=== PATIENT | female | born 1985 | race Caucasian/White ===

== ENCOUNTER 2019-12-22 14:20 | Outpatient (REF) | payer BC, SELFPAY ==
--- NOTE | 2019-12-22 14:36 | US_ITS ---
EXAMINATION: US OBSTETRICAL CLINICAL INFORMATION: 34-year-old at 19.1 weeks of gestation Suspected anomaly COMPARISON: [id number] TECHNIQUE: Real-time transabdominal ultrasound was performed using C1-5 megahertz transducer. FINDINGS: A single, active, fetus is seen in breech presentation. The placenta is posterior without previa, and the amniotic fluid volume is wnl. MEASUREMENTS: 1. Biparietal Diameter: 4.7 cm; 20.1 wks 2. Occipital Frontal Diameter: 5.9 cm 3. Head Circumference: 16.8 cm; 18.4 wks 4. Abdominal Circumference: 13.7 cm; 19.2 wks 5. Femur Length: 2.96 cm; 19.1 wks 6. Humerus Length: 2.83 cm; 19.1 wks 7. Tibia Length: 2.63 cm; 19.3 wks 8. Ulna Length: 2.62 cm; 19.4 wks 9. Cerebellum: 1.93 cm; 19.6 wks 10. Cisterna Magna: 0.33 cm 11. Nuchal Fold: 2.9 mm 12. Heart Rate: 143 beats per minute Rt ovary: normal Lt ovary: normal Cervical length 5.4 cm on T/A. GESTATIONAL AGE: 1. Established GA: 19.1 wks 2. GA from [facility]: 19.4 wks ESTIMATED DATE OF DELIVERY: 1. Established TOMMIE: 05/16/2020 2. TOMMIE from [facility]: 05/13/2020 ANATOMY: The visualized anatomy includes but not limited to: 1. Cranium: Normal 2. Intracranial anatomy: cavum septum pellucidi, lateral ventricles, choroid plexus, cerebellum, posterior fossa, third and fourth ventricles. 3. face: orbits, lip/palate, profile, nasal bone 4. Heart: four-chamber view of the heart, ventricular septum, foramen ovale, pulmonary vein, left and right outflow tracts, three-vessel view, 3 vessel trachea view, aortic and ductal arches, situs.. 5. Diaphragm: Normal 6. Abdominal wall: Normal 7. Cord Insertion: Normal 8. Spine: Cervical, thoracic, lumbar, sacral. 9. Stomach: Normal size and shape 10. Right Kidney: Normal 11. Left Kidney: Normal 12. 3 vessel cord: Normal 13. Upper extremity: Open hands, fifth digit. 14. Lower extremity: Tibia, fibula, bilateral feet. 15. Bladder: Normal 16. Genitalia: Male, patient not aware IMPRESSION: 1. Single, living, intrauterine with appropriate biometry. 2. Normal survey DISCUSSION: I reviewed today's ultrasound findings. We discussed the limitations of ultrasound in diagnosing aneuploidy and other congenital abnormalities. I reviewed the differences between screening test and diagnostic test. Amniocentesis was discussed and declined. She was informed that the baseline incidence of congenital abnormalities is approximately 3-5%. Not all these conditions are diagnosable in utero. RECOMMENDATIONS: 1. No further follow-up has not been scheduled at this time. Thank you for allowing me to participate in her care. Visiting time 25 minutes. Majority of this visit was spent reviewing and discussing her care.
== END 2019-12-22 14:21 | disposition home or self-care (01) ==
LOC: HO.US 14:20
PROVIDERS: Visit Provider Advanced Practice Midwife
DX: Z34.82 Encounter for supervision of other normal pregnancy, second trimester (principal)
CPT/HCPCS: 76811

== ENCOUNTER 2019-12-26 16:16 | Outpatient (REF) | payer BC, SELFPAY ==
[2019-12-26 19:04] LABS: Appearance Urine CLEAR; Color Urine STRAW; Glucose Urine UA NEG (NEG); Leukocyte Esterase Urine NEG (NEG); Nitrite Urine NEG (NEG); Specific Gravity - Urine <= 1.005 (1.005-1.025); Urine Blood NEG (NEG); Urine Ketones NEG (NEG); Urine Protein NEG (NEG-TRACE)
== END 2019-12-26 16:17 | disposition home or self-care (01) ==
LOC: HO.LNP 16:16
PROVIDERS: PCP Internal Medicine; Visit Provider Advanced Practice Midwife
DX: Z34.80 Encounter for supervision of other normal pregnancy, unspecified trimester (principal)
CPT/HCPCS: 81003

== ENCOUNTER → 2020-02-23 15:25 | Outpatient (BNVA) | payer BC, SELFPAY | PROVIDERS: PCP Internal Medicine; Visit Provider Advanced Practice Midwife | DX: Z76.89 Persons encountering health services in other specified circumstances (principal) ==

== ENCOUNTER 2020-02-28 13:10 | Outpatient (REF) | payer BC, SELFPAY ==
[2020-02-28 15:06] LABS: Hematocrit 34.1 % (37-47); Hemoglobin 11.2 g/dl (12.0-16.0); Mean Corpuscular HGB Conc 32.8 g/dl (31.0-35.0); Mean Corpuscular Hemoglobin 30.7 pg (27.0-33.0); Mean Corpuscular Volume 93.4 fL (80-98); Mean Platelet Volume 10.2 fL (9.4-12.3); Platelet Count 195 X10*3/uL (160-400); Red Blood Count 3.65 X10*6/uL (4.20-5.50); Red Cell Distribution Width 12.1 % (11.0-16.0); White Blood Count 10.6 X10*3/uL (4.8-10.8)
[2020-02-28 15:41] LABS: Glucose 1 Hour PP 50gm Dose 112 mg/dL (60-140)
[2020-02-28 16:04] LABS: Syphilis Screen Nonreactive (Nonreactive)
== END 2020-02-28 13:11 | disposition home or self-care (01) ==
LOC: HO.LAB 13:10
PROVIDERS: PCP Internal Medicine; Visit Provider Advanced Practice Midwife
DX: Z34.80 Encounter for supervision of other normal pregnancy, unspecified trimester (principal); Z20.2 Contact with and (suspected) exposure to infections with a predominantly sexual mode of transmission
CPT/HCPCS: 36415; 85027; 86780; 87086

== ENCOUNTER → 2020-03-11 15:16 | Outpatient (BNVA) | payer BC, SELFPAY | PROVIDERS: PCP Internal Medicine; Visit Provider Advanced Practice Midwife | DX: O99.019 Anemia complicating pregnancy, unspecified trimester (principal); Z3A.00 Weeks of gestation of pregnancy not specified | CPT/HCPCS: 99212 ==

== ENCOUNTER → 2020-03-26 15:25 | Outpatient (BNVA) | payer BC, SELFPAY | PROVIDERS: PCP Internal Medicine; Visit Provider Advanced Practice Midwife | DX: Z34.03 Encounter for supervision of normal first pregnancy, third trimester (principal) | CPT/HCPCS: 81003; 90471; 90715; 99212 ==